=== PATIENT | female | born 1975 | race African-American/Black ===

== ENCOUNTER 2016-11-12 16:58 | Emergency (ER) | payer OTHER ==
[~2016-11-12] VITALS: Ht 162.6 cm; Wt 57.0 kg
[~2016-11-12 16:58] MED LIST: ALBU8.5H IH
[2016-11-12] MEDS ORDERED: CefTRIAXone SODIUM 1 GM/VIAL IM ONE (20:15)
[2016-11-12] MEDS ORDERED: LIDOCAINE HCL/PF 1% 2 ML VIAL IM ONE (20:15)
[2016-11-12 20:43] VITALS: BP 126/71
[2016-11-12] MEDS ORDERED: IBUPROFEN 800 MG TABLET PO ONE (20:45)
[2016-11-12] MEDS ORDERED: BACITRACIN 0.9 GM PACKET OINTMENT TP ONE (20:45)
== END 2016-11-12 21:04 | disposition home or self-care (01) ==
LOC: EMS 16:58
DX: S50.861A Insect bite (nonvenomous) of right forearm, initial encounter (principal); L02.413 Cutaneous abscess of right upper limb; L03.113 Cellulitis of right upper limb; L08.9 Local infection of the skin and subcutaneous tissue, unspecified; J45.909 Unspecified asthma, uncomplicated; F17.210 Nicotine dependence, cigarettes, uncomplicated; F12.90 Cannabis use, unspecified, uncomplicated
CPT/HCPCS: 96372; 99284; J0696; J3490

== ENCOUNTER 2016-11-27 00:02 | Emergency (ER) | payer OTHER ==
[~2016-11-27] VITALS: Ht 167.6 cm; Wt 59.1 kg
[2016-11-27] MEDS ORDERED: PERTUSS(ACELL),DIPH,TET VAC/PF 0.5 ML VIAL IM ONE (04:30)
[2016-11-27 04:43] VITALS: BP 131/77
== END 2016-11-27 05:33 | disposition home or self-care (01) ==
LOC: EMS 00:03
DX: S01.01XA Laceration without foreign body of scalp, initial encounter (principal); S50.12XA Contusion of left forearm, initial encounter; J45.909 Unspecified asthma, uncomplicated; F17.210 Nicotine dependence, cigarettes, uncomplicated; F12.10 Cannabis abuse, uncomplicated
CPT/HCPCS: 90471; 90715; 99284; 99406

== ENCOUNTER 2016-12-06 12:37 | Emergency (ER) | payer OTHER ==
[~2016-12-06] VITALS: Ht 162.6 cm; Wt 59.1 kg
[2016-12-06] MEDS ORDERED: IBUP-1547 PO (13:52)
[2016-12-06] MEDS ORDERED: CEPH500 PO (13:52)
[2016-12-06] MEDS ORDERED: SULF-168 PO (13:52)
[2016-12-06 17:05] VITALS: BP 149/91
== END 2016-12-06 17:20 | disposition home or self-care (01) ==
LOC: EMS 12:38
DX: S83.92XD Sprain of unspecified site of left knee, subsequent encounter (principal); S50.02XD Contusion of left elbow, subsequent encounter; J45.909 Unspecified asthma, uncomplicated; F17.210 Nicotine dependence, cigarettes, uncomplicated; F12.90 Cannabis use, unspecified, uncomplicated; Y08.89XD Assault by other specified means, subsequent encounter
CPT/HCPCS: 29505; 99284

== ENCOUNTER 2017-01-15 21:58 | Emergency (ER) | payer OTHER ==
[~2017-01-15] VITALS: Ht 165.1 cm; Wt 59.1 kg
[~2017-01-15 21:58] MED LIST changes: -ALBU8.5H IH; +CEPH500 PO; +IBUP-1547 PO; +SULF-168 PO
[2017-01-16] MEDS ORDERED: ACETAMINOPHEN 500 MG TABLET PO ONE (01:30)
[2017-01-16] MEDS ORDERED: SULFAMETHOX/TRIMETH DS 800-160 MG/TABLET PO ONE (01:30)
[2017-01-16] MEDS ORDERED: CEPHALEXIN MONOHYDRATE 500 MG CAPSULE PO ONE (01:30)
[2017-01-16 02:23] VITALS: BP 121/68
== END 2017-01-16 02:29 | disposition home or self-care (01) ==
LOC: EMS 22:00
DX: L02.811 Cutaneous abscess of head [any part, except face] (principal); L72.3 Sebaceous cyst; J45.909 Unspecified asthma, uncomplicated; F17.210 Nicotine dependence, cigarettes, uncomplicated
CPT/HCPCS: 99284

== ENCOUNTER 2017-07-02 21:30 | Emergency (ER) | payer OTHER ==
[~2017-07-02] VITALS: Ht 165.1 cm; Wt 65.9 kg
[2017-07-02] MEDS ORDERED: DiphenhydrAMINE HCL 50 MG/ML VIAL IM ONE (22:00)
[2017-07-02 22:03] VITALS: BP 122/69
== END 2017-07-02 22:21 | disposition home or self-care (01) ==
LOC: EMS 21:33
DX: L40.9 Psoriasis, unspecified (principal); J45.909 Unspecified asthma, uncomplicated; F17.210 Nicotine dependence, cigarettes, uncomplicated; F12.90 Cannabis use, unspecified, uncomplicated
CPT/HCPCS: 96372; 99283; J1200

== ENCOUNTER 2017-08-01 11:18 | Emergency (ER) | payer OTHER ==
[~2017-08-01] VITALS: Ht 165.1 cm; Wt 59.1 kg
[2017-08-01 11:46] VITALS: BP 144/112
== END 2017-08-01 13:29 | disposition home or self-care (01) ==
LOC: EMS 11:21
DX: L02.213 Cutaneous abscess of chest wall (principal); J45.909 Unspecified asthma, uncomplicated; F12.90 Cannabis use, unspecified, uncomplicated; F17.210 Nicotine dependence, cigarettes, uncomplicated
CPT/HCPCS: 99283

== ENCOUNTER 2017-10-07 22:32 | Emergency (ER) | payer OTHER ==
[~2017-10-07] VITALS: Ht 165.1 cm; Wt 56.8 kg
[2017-10-07] MEDS ORDERED: CEPHALEXIN MONOHYDRATE 500 MG CAPSULE PO ONE (23:45)
[2017-10-07] MEDS ORDERED: IBUPROFEN 600 MG TABLET PO ONE (23:45)
[2017-10-07] MEDS ORDERED: BACITRACIN 0.9 GM PACKET OINTMENT TP ONE (23:45)
[2017-10-08 02:11] VITALS: BP 139/88
== END 2017-10-08 02:16 | disposition home or self-care (01) ==
LOC: EMS 22:33
DX: S60.440A External constriction of right index finger, initial encounter (principal); F17.210 Nicotine dependence, cigarettes, uncomplicated; F12.90 Cannabis use, unspecified, uncomplicated; W49.04XA Ring or other jewelry causing external constriction, initial encounter; Y93.89 Activity, other specified; Y92.89 Other specified places as the place of occurrence of the external cause; Y99.8 Other external cause status
CPT/HCPCS: 99284; 99406

== ENCOUNTER 2017-12-28 15:22 | Emergency (ER) | payer OTHER ==
[~2017-12-28] VITALS: Ht 165.1 cm; Wt 58.2 kg
[2017-12-28] MEDS ORDERED: TRIA15OI6 TP (15:44)
[2017-12-28] MEDS ORDERED: ALBU8.5H8 IH (15:44)
[2017-12-28] MEDS ORDERED: DIPH25 PO (15:44)
[2017-12-28 17:35] VITALS: BP 128/80
== END 2017-12-28 18:09 | disposition home or self-care (01) ==
LOC: EMS 15:24
DX: H60.93 Unspecified otitis externa, bilateral (principal); L30.9 Dermatitis, unspecified; F17.210 Nicotine dependence, cigarettes, uncomplicated; F12.10 Cannabis abuse, uncomplicated; R09.81 Nasal congestion; J45.909 Unspecified asthma, uncomplicated; Z79.899 Other long term (current) drug therapy
CPT/HCPCS: 99283

== ENCOUNTER 2018-04-15 18:02 | Emergency (ER) | payer OTHER ==
[~2018-04-15] VITALS: Ht 165.1 cm; Wt 59.1 kg
[~2018-04-15 18:02] MED LIST changes: +ALBU8.5H8 IH; -CEPH500 PO; +DIPH25 PO; -IBUP-1547 PO; -SULF-168 PO; +TRIA15OI6 TP
[2018-04-15] MEDS ORDERED: IBUPROFEN 800 MG TABLET PO ONE (20:00)
[2018-04-15] MEDS ORDERED: POVIDONE-IODINE 10% 15 ML SOLUTION UD TP ONE (20:00)
[2018-04-15 20:49] VITALS: BP 112/85
== END 2018-04-15 20:50 | disposition home or self-care (01) ==
LOC: EMS 18:03
DX: L02.11 Cutaneous abscess of neck (principal); L30.9 Dermatitis, unspecified; J45.909 Unspecified asthma, uncomplicated; F12.90 Cannabis use, unspecified, uncomplicated; F17.210 Nicotine dependence, cigarettes, uncomplicated
CPT/HCPCS: 10060; 99283

== ENCOUNTER 2018-06-15 20:56 | Emergency (ER) | payer OTHER ==
[~2018-06-15] VITALS: Ht 165.1 cm; Wt 59.1 kg
[2018-06-15] MEDS ORDERED: LIDOCAINE/PF 1% 5 ML VIAL INJ ONE (21:45)
[2018-06-15] MEDS ORDERED: POVIDONE-IODINE 10% 15 ML SOLUTION UD TP ONE (21:45)
[2018-06-15] MEDS ORDERED: HYDROCODONE/ACETAMINOPHEN 5-325 MG TABLET PO ONE (22:45)
[2018-06-15 22:49] VITALS: BP 128/75
== END 2018-06-15 22:50 | disposition home or self-care (01) ==
LOC: EMS 20:56
DX: S63.284A Dislocation of proximal interphalangeal joint of right ring finger, initial encounter (principal); F17.210 Nicotine dependence, cigarettes, uncomplicated; F12.90 Cannabis use, unspecified, uncomplicated; J45.909 Unspecified asthma, uncomplicated; Z98.51 Tubal ligation status; Y04.0XXA Assault by unarmed brawl or fight, initial encounter; Y93.89 Activity, other specified; Y92.89 Other specified places as the place of occurrence of the external cause; Y99.8 Other external cause status
CPT/HCPCS: 26770; 73130; 73140; 99284; 99406; J3490; 26755

== ENCOUNTER 2019-01-10 12:42 | Emergency (ER) | payer OTHER ==
[~2019-01-10] VITALS: Ht 165.1 cm; Wt 63.6 kg
[2019-01-10] MEDS ORDERED: BICT1TAB PO (16:00)
[2019-01-10] MEDS ORDERED: TRIAMCINOLONE 0.025% 60 ML LOTION TP ONE (16:00)
[2019-01-10 16:04] LABS: BASOPHILS % (AUTO) 0.4 % (0.0-2.0); EOSINOPHILS % (AUTO) 14.5 % (1.0-6.0); HEMATOCRIT 37.1 % (36-46); HEMOGLOBIN 12.4 g/dL (12.0-16.0); LYMPHOCYTES # (AUTO) 1.9 K/uL (1.0-4.8); LYMPHOCYTES % (AUTO) 21.6 % (22.0-44.0); MEAN CORPUSCULAR HEMOGLOBIN 28.6 pg (26.0-34.0); MEAN CORPUSCULAR HGB CONC 33.5 G/dL (31.0-37.0); MEAN CORPUSCULAR VOLUME 85 fL (80-100); MONOCYTES # (AUTO) 0.8 K/uL (0.1-1.0); MONOCYTES % (AUTO) 8.6 % (2.0-9.0); NEUTROPHILS % (AUTO) 54.9 % (40.0-70.0); PLATELET COUNT (AUTO) 266 K/uL (150-450); RED BLOOD CELL COUNT(AUTO) 4.35 MIL/uL (4.00-5.20); RED CELL DISTRIBUTION WIDTH 16.8 % (11.5-14.5)
[2019-01-10] MEDS ORDERED: SULF1TAB93 PO (16:04)
[2019-01-10] MEDS ORDERED: CEPH500 PO (16:04)
[2019-01-10] MEDS ORDERED: SULF1TAB3 PO (16:04)
[2019-01-10] MEDS ORDERED: GABA-531 PO (16:04)
[2019-01-10] MEDS ORDERED: HYD25 PO (16:04)
[2019-01-10 16:20] LABS: ANION GAP 10 mmol/L (8-16); CALCIUM, TOTAL 8.7 mg/dL (8.8-10.5); CARBON DIOXIDE 26 mmol/L (22-29); CHLORIDE 106 mmol/L (98-107); CREATININE 0.95 mg/dL (0.60-1.30); GLOMERULAR FILTR. RATE CALC > 60 mL/min (>60); GLUCOSE,RANDOM 105 mg/dL (70-110); POTASSIUM 4.1 mmol/L (3.5-5.1); SODIUM SERUM 142 mmol/L (136-145); UREA NITROGEN, BLOOD 18 mg/dL (7-18)
[2019-01-10 16:24] LABS: ALANINE AMINOTRANSFERASE 30 U/L (12-78); ALBUMIN 3.4 g/dL (3.4-5.0); ALKALINE PHOSPHATASE 65 U/L (46-116); ASPARTATE AMINOTRANSFERASE 31 U/L (15-37); BILIRUBIN,TOTAL 0.4 mg/dL (0.1-1.0); TOTAL PROTEIN, SERUM 7.4 g/dL (6.4-8.2)
[2019-01-10 16:45] VITALS: BP 123/78
== END 2019-01-10 16:58 | disposition home or self-care (01) ==
LOC: EMS 13:26
DX: L30.9 Dermatitis, unspecified (principal); L28.0 Lichen simplex chronicus; F17.210 Nicotine dependence, cigarettes, uncomplicated; J45.909 Unspecified asthma, uncomplicated; F12.90 Cannabis use, unspecified, uncomplicated